=== PATIENT | female | born 1970 | race Two or more races ===

== ENCOUNTER 2018-10-06 18:24 | Emergency (ER) | payer OTHER, SELFPAY ==
[~2018-10-06] VITALS: Ht 152.4 cm; Wt 47.8 kg
[2018-10-06 20:38] VITALS: BP 135/55
== END 2018-10-06 20:42 | disposition home or self-care (01) ==
LOC: ED 20:30
DX: R10.31 Right lower quadrant pain (principal); R11.0 Nausea; D25.9 Leiomyoma of uterus, unspecified
CPT/HCPCS: 36415; 74177; 80048; 81001; 82040; 84703; 85025; 87086; 96374; 96375; 99284; J1885; J2270; J7030; Q9967